=== PATIENT | female | born 1970 | race Caucasian/White ===

== ENCOUNTER 2023-01-28 12:30 | Outpatient (REF) | payer OTHER, SELFPAY ==
--- NOTE | ~2023-01-28 | MM_ITS ---
EXAMINATION: MM SCREENING DIGITAL BREAST TOMOSYNTHESIS, BILATERAL CLINICAL INFORMATION: Screening. Asymptomatic. The lifetime risk of breast cancer based on the Tyrer-Cuzick Model is 11%. COMPARISON: Mammography: 05/11/2011 TECHNIQUE: Digital breast tomosynthesis is performed in both the craniocaudal and mediolateral oblique views along with computer-aided detection (CAD). Synthesized 2D images are generated from the tomosynthesis. FINDINGS: There are scattered areas of fibroglandular density (ACR BI-RADS breast composition Category b). Parenchymal pattern is similar to prior exam and there is no significant mass or architectural abnormality. The bilateral axilla and skin contours are unremarkable. No abnormal calcifications right breast. Left breast has tightly grouped benign-appearing calcifications posterior left breast on MLO view 6 cm from nipple inferior to posterior nipple line. There is a central stack on tomography. Patient will be recalled to fully characterize. MM/MM tomosynthesis screening BI IMPRESSION: Left: -Tightly grouped probable benign calcifications posterior inferior breast on MLO view 6 cm from nipple. Right: -No mammographic evidence of malignancy. ASSESSMENT: BI-RADS 0: Incomplete - Need Additional Imaging Evaluation RECOMMENDATION: 1. Additional views left breast (magnification ML, magnification CC. 2. Radiology department staff will contact the patient for additional imaging. This patient's information was entered into a reminder system with a target due date for their next mammogram.
== END 2023-01-28 12:31 | disposition home or self-care (01) ==
LOC: HO.MAMMO 12:30
PROVIDERS: Visit Provider Nurse Practitioner Family
DX: Z12.31 Encounter for screening mammogram for malignant neoplasm of breast (principal)
CPT/HCPCS: 77063; 77067

== ENCOUNTER 2023-02-14 12:53 | Outpatient (REF) | payer OTHER, SELFPAY ==
--- NOTE | ~2023-02-14 | MM_ITS ---
EXAMINATION: MM DIAGNOSTIC DIGITAL MAMMOGRAPHY, LEFT CLINICAL INFORMATION: Recall from screening for tightly grouped calcifications left breast, new from prior mammography over 10 years earlier. COMPARISON: Mammography: 01/28/2023 (BI-RADS 0), 05/11/2011 TECHNIQUE: Digital mammography is performed in the following views: Magnification CC x2, magnification ML FINDINGS: There are scattered areas of fibroglandular density (ACR BI-RADS breast composition Category b). There are some faint punctate calcifications mid left breast just superior to posterior nipple line on the ML view. The CC views show a few barely perceptible vascular calcifications lateral and medial breast, otherwise no three-dimensional grouping. Results are discussed with the patient at time of visit. The calcifications may be vascular in etiology. Prior mammography is over 10 years ago. Chronicity is therefore uncertain. Management plan is for short interval six-month follow-up left mammography to include magnification views. MM/MM added views LT IMPRESSION: Probable benign calcifications left breast, possibly vascular. Long-term chronicity uncertain. ASSESSMENT: BI-RADS 3: Probably Benign RECOMMENDATION: Diagnostic left mammography in 6 months. This patient's information was entered into a reminder system with a target due date for their next mammogram.
== END 2023-02-14 12:54 | disposition home or self-care (01) ==
LOC: HO.MAMMO 12:53
PROVIDERS: PCP Nurse Practitioner Family; Visit Provider Nurse Practitioner Family
DX: R92.8 Other abnormal and inconclusive findings on diagnostic imaging of breast (principal)
CPT/HCPCS: 77065

== ENCOUNTER 2023-08-23 12:44 | Outpatient (REF) | payer OTHER, SELFPAY ==
--- NOTE | ~2023-08-23 | MM_ITS ---
EXAMINATION: MM DIAGNOSTIC DIGITAL BREAST TOMOSYNTHESIS, LEFT CLINICAL INFORMATION: Follow-up left breast calcifications approximate 9:00 axis, middle one third. First follow-up. COMPARISON: Mammography: 02/14/2023, 01/28/2023, 05/11/2011. TECHNIQUE: Digital breast tomosynthesis is performed in the following views: Left CC and ML 2-D spot magnification views, full-field left CC 3-D view, full-field 3-D left MLO views x2. FINDINGS: There are scattered areas of fibroglandular density (ACR BI-RADS breast composition Category b). There are stable and unchanged grouped calcifications in the approximate 9:00 axis of the left breast, middle one third, stable in number and morphology. There is been no aggressive change. There is a possibility these could represent vascular calcifications. No new calcifications, new masses, or areas of architectural distortion in the left breast. MM/MM tomosynthesis diagnostic LT IMPRESSION: There are no findings suspicious for malignancy in the left breast. There are no significant changes in the small grouped calcifications left breast 9:00 axis. Six-month interval follow-up recommended utilizing standard magnification views when the patient is due for bilateral screening in January 2024. ASSESSMENT: BI-RADS BI-RADS 3 - Probably benign finding(s) - 6 month follow-up suggested RECOMMENDATION: 6 Month F/U Results were provided to the patient at time of visit by the technologist. This patient's information was entered into a reminder system with a target due date for their next mammogram.
== END 2023-08-23 12:45 | disposition home or self-care (01) ==
LOC: HO.MAMMO 12:44
PROVIDERS: PCP Nurse Practitioner Family; Visit Provider Nurse Practitioner Family
DX: R92.1 Mammographic calcification found on diagnostic imaging of breast (principal)
CPT/HCPCS: 77061; 77065

== ENCOUNTER → 2023-08-23 13:00 | Outpatient (BNV) | payer OTHER, SELFPAY | PROVIDERS: PCP Nurse Practitioner Family; Visit Provider Radiology Diagnostic Radiology | DX: R92.1 Mammographic calcification found on diagnostic imaging of breast (principal) | CPT/HCPCS: 77061; 77065 ==

== ENCOUNTER 2024-03-03 13:19 | Outpatient (REF) | payer OTHER, SELFPAY ==
--- NOTE | ~2024-03-03 | MM_ITS ---
EXAMINATION: MM DIAGNOSTIC DIGITAL BREAST TOMOSYNTHESIS, BILATERAL CLINICAL INFORMATION: 6 month follow-up for left breast calcifications 3:00 axis left breast, middle one third. COMPARISON: Mammography: 08/23/2023, 02/14/2023, 01/28/2023 (BI-RADS 0), and dating back to 2010. TECHNIQUE: Digital breast tomosynthesis is performed in both the craniocaudal and mediolateral oblique views along with computer-aided detection (CAD). Synthesized 2D images are generated from the tomosynthesis. In addition, spot magnification 2-D CC and ML views were obtained of the left breast. FINDINGS: There are scattered areas of fibroglandular density (ACR BI-RADS breast composition Category b). Subtle grouped calcifications in the middle one third of the left breast at 9:00 are unchanged dating back to 01/28/2023. No aggressive changes are increased in number. Stable morphology. These remain probably benign. One-year follow-up recommended. Otherwise, bilateral hilar parenchymal pattern is stable with stable minor asymmetries in the upper outer bilateral breasts. No suspicious masses, new suspicious grouped calcifications, or areas of architectural distortion. No adenopathy or skin changes. MM/MM tomosynthesis diagnostic BI IMPRESSION: There are no findings suspicious for malignancy in either breast. There are stable probably benign calcifications in the 9:00 axis of the left breast. One-year follow-up diagnostic left mammogram recommended when the patient is due for bilateral screening, to include standard magnification views. ASSESSMENT: BI-RADS BI-RADS 3 - Probably benign finding(s) - 12 month follow-up suggested RECOMMENDATION: 12 month diagnostic follow up Results were provided to the patient at time of visit by the technologist. This patient's information was entered into a reminder system with a target due date for their next mammogram.
== END 2024-03-03 13:20 | disposition home or self-care (01) ==
LOC: HO.MAMMO 13:19
PROVIDERS: PCP Nurse Practitioner Family; Visit Provider Nurse Practitioner Family
DX: R92.1 Mammographic calcification found on diagnostic imaging of breast (principal)
CPT/HCPCS: 77062; 77066

== ENCOUNTER → 2024-03-03 13:30 | Outpatient (BNV) | payer OTHER, SELFPAY | PROVIDERS: PCP Nurse Practitioner Family; Visit Provider Radiology Diagnostic Radiology | DX: R92.1 Mammographic calcification found on diagnostic imaging of breast (principal) | CPT/HCPCS: 77062; 77066 ==

== ENCOUNTER 2025-03-08 11:59 | Outpatient (REF) | payer OTHER, SELFPAY ==
--- NOTE | ~2025-03-08 | MM_ITS ---
EXAMINATION: MM DIAGNOSTIC DIGITAL BREAST TOMOSYNTHESIS, BILATERAL CLINICAL INFORMATION: Year follow-up for grouped punctate calcifications in the central inner breast. COMPARISON: Mammography: Comparison is made with relevant prior exams. TECHNIQUE: Digital breast mammography with tomosynthesis is performed in both the craniocaudal and mediolateral oblique views along with computer-aided detection (CAD). FINDINGS: There are scattered areas of fibroglandular density (ACR BI-RADS breast composition Category b). Previously seen calcifications in the central inner left breast anterior to middle depth are not significantly changed from prior magnification views dating back for 2 years and therefore benign. There are no significant masses, abnormal calcifications, or other abnormalities. Results are provided to the patient at time of visit by the technologist. MM/MM tomosynthesis diagnostic BI IMPRESSION: Right: Negative. Left: Grouped punctate calcifications in the central inner left breast anterior to middle depth are not significant change from prior magnification views dating back for 2 years and therefore benign. ASSESSMENT: BI-RADS BI-RADS 2 - Benign Findings RECOMMENDATION: 1 year F/U This patient's information was entered into a reminder system with a target due date for their next mammogram. Electronically signed by: Taniya Serrano DO 03/08/2025 12:35 PM EDT
--- OUTSIDE RECORDS SUMMARY | 2025-03-08 13:04 | XMS_ITS | Clinical Summary ---
Author Organization [employer] Address [address] [place] [address] [address] [place] [address] Care Team Providers Care Budget Specialist Name Role Phone Melissa Ramirez Unavailable Unavailable Allergies Active Allergy Reactions Criticality Noted Date Comments Atorvastatin Low 11/30/2022 Other reaction(s): muscel aches, joint pain, swelling in her knees Terbinafine Low 11/30/2022 Other reaction(s): stomach upset Medications Humira Pen 40 MG/0.4ML Pen-injector Kit pen-injector 3 Active ferrous sulfate 325 (65 Fe) MG tablet 1 tablet in the morning. Active folic acid (Folvite) 1 MG tablet Take 1,000 mcg by mouth in the morning. 3 Active methotrexate 2.5 MG tablet 8 tablets per week 3 Active Multiple Vitamins-Minerals (Multi For Her) tablet Orally Active metoprolol succinate XL (Toprol-XL) 50 MG 24 hr tabletIndications:E ssential (primary) hypertension TAKE 1 AND 1/2 TABLETS BY MOUTH EVERY DAY ONCE A DAY 135 tablet 2 4 Active rosuvastatin (Crestor) 20 MG tabletIndications:M ixed hyperlipidemia Take 1 tablet (20 mg) by mouth in the morning. 90 tablet 3 4 Active losartan (Cozaar) 50 MG tabletIndications:E ssential hypertension Take 0.5 tablets (25 mg) by mouth Once per day. 45 tablet 3 4 03/30/20 25 Active Active Problems Problem Noted Date Diagnosed Date Abnormal mammogram 09/11/2023 Overview (03/30/2024): 08/23/23- L breast no findings suspicious for malignancy of left breast. No significant changes in small grouped calcifications left breast 9:00 axis. Birads 3. Bilat screening DUE February 2025. Essential hypertension 12/10/2022 Overview (10/04/2023): Well controlled with Lisinopril and Metoprolol Using BB for migraine/ FLORES prevention. Hyperlipidemia 12/10/2022 Overview (03/30/2024): 10-year ASCVD risk: 9.8% (11/2022) Last Lipid with mild elevation in Triglycerides from 06/17. Hx of myalgias with Lipitor Started Crestor (12/17) LDL in the 140 s- increasing from 10 to 20 of crestor. Assessment & Plan (12/10/2022 3:50 PM EDT): Mild diastolic elevation - due for labs. Tolerating meds well. 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 Plans to taper off Methotrexate due to some elevation in liver enzymes. Followed by Dr Celis ([facility]). 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 Polyp at cervical os 12/10/2022 Overview (01/25/2023): New finding of 1cm mass partially obscuring cervical os. ? If HPV growth related to immunosuppression. Recommend prompt eval with Cover Stitch Machine Operator for eval and bx, and excision (visit with [facility] 01/16/23) Biopsy: benign endocervical polyp 0.8 cm path (01/16/23) Immunizations Immunization Administration Dates Next Due Hep B, adult 07/04/2023,01/10/2023,12/10/2022 07/15/2023 INFLUENZA INJECTABLE QUADRIV ALANT CCIIV4 MDCK Multi-dose vial 06/08/2022,06/28/2020,05/25/2019 Influenza, IIV3, injectable 06/03/2018 Influenza, Split (incl. krishna fied surface antigen) 07/04/2018 Influenza, trivalent, adjuvanted 05/20/2023 Pfizer Covid-19 Vaccine 12+ 06/26/2021 Tdap 05/22/2018 Family History Medical History Relation Name Comments Gallbladder disease Father HTN Mother Polymyalgia rheumatica Mother Relation Name Status Comments Father Mother Alive Social History Tobacco Use Types Packs/Day Years Used Date Smoking Tobacco: Never Smokeless Tobacco: Never Tobacco Cessation:Counseling Given: Not Answered Alcohol Use Standard Drinks/Week Comments Yes 0 (1 standard drink = 0.6 oz pur e alcohol) occationally PHQ-2 Answer Date Recorded Patient Health Questionnaire-2 Score 0 12/10/2022 Housing Stability Answer Date Recorded What is your housing situation today? I have jose jeffrey 03/30/[address] you li ve. Do you have problems with any of the following? None of the above 03/30/2024 Food Insecurity Answer Date Recorded Within the past 12 months, y ou worried that your food would run out before you got money to buy more: Never True 03/30/2024 Within the past 12 months,th e food you bought just didn't last and you didn't have enough money to get more: Never True 12/2023 Transportation Answer Date Recorded In the past 12 months, has l ack of transportation kept you from medical appts, meetings, work or from getting things needed for daily living? No 03/30/2024 Utilities Answer Date Recorded In the past 12 months, has t he electric, gas, oil or water company threatened to shut off services in your home? No 03/30/2024 Depression Answer Date Recorded Patient Health Questionnaire-2 Score 0 03/30/2024 Internet Access Answer Date Recorded Internet Access Q1 Yes 04/26/2024 Internet Access Q2 Not on file 04/26/2024 Education Answer Date Recorded What is the highest level of school you have completed or the highest degree you have received? Associate degree: academic program 12/10/2022 Comments Unknown Sex and Gender Information Value Date Recorded Sex Assigned at Female 12/06/2022 11:00 AM EDT Legal Sex Female 8:38 PM EDT Gender Identity Female 12/06/2022 11:00 AM EDT Sexual Orientation Straight 12/06/2022 11 :00 AM EDT Occupation Industry Job Start Date Job End Date Nurse Not on file Not on file Not on file Last Filed Vital Signs Vital Sign Reading Time Taken Comments Blood Pressure 140/85 03/30/2024 9:41 AM EDT Pulse 85 03/30/2024 9:04 AM EDT Temperature 36.5 C (97.7 F) 03/30/2024 9:04 AM EDT Respiratory Rate 16 03/30/2024 9:04 AM EDT Oxygen Saturation 98% 06/05/2023 11:42 AM EDT Inhaled Oxygen Concentration - - Weight 85.7 kg (189 lb) 03/30/2024 9:04 AM EDT Height 159.4 cm (5' 2.75 ) 03/30/2024 9:04 AM ED T Body Mass Index 33.75 03/30/2024 9:04 AM EDT Plan of Treatment Health Maintenance Due Date Last Done Comments CT Colonography 1970 Colonoscopy 1970 Colorectal Cancer Screening 1970 FIT DNA/Cologuard 1970 FIT 1970 FOBT 1970 HIV Screening 1970 Sigmoidoscopy 1970 Disability Screening 1970 Alcohol/Substance Use Screening 1982 Pneumococcal Vaccine: 50+ Years (1 of 2 - PCV) 1989 Zoster Vaccines (1 of 2) 1989 COVID-19 Vaccine ( season) 2024 08/30/2023, 09/04/2022, 06/26/2021, Additional history exists Tobacco Screening 06/05/2024 06/05/2023 Mammogram 09/03/2024 03/03/2024, 07/27, 01/28/2023 Depression Screening 03/30/2025 03/30/2024, 03/30/20 24 SDOH Screening 03/30/2025 03/30/2024 Influenza Vaccine (#1) 2025 , 06/08/2022, 06/28/2020, Additional history exists Pap Smear 12/10/2025 12/10/2022, 05/30/2018 Cervical Cancer Screening 12/11/2027 HPV/Cotest 12/11/2027 12/10/2022, 05/30/2018 DTaP/Tdap/Td Vaccines (2 - Td or Tdap) 05/22/2028 05/22/2018 Lipid Panel 03/24/2029 03/24/2024, 05/26, 12/12/2022, Additional history exists RSV Patients and Patients Aged 60 years or older (1 - 1-dose 75+ series) 2045 Hepatitis C Screening Completed 12/12/2022 Hepatitis B Vaccines Completed 07/04/2023, 01/10/2023, 12/10/2022 HIB Vaccines Aged Out No longer eligi ble based on patient's age to complete this topic HPV Vaccines Aged Out No longer eligi ble based on patient's age to complete this topic Hepatitis A Vaccines Aged Out No long er eligible based on patient's age to complete this topic IPV Vaccines Aged Out No longer eligi ble based on patient's age to complete this topic Meningococcal B Vaccine Aged Out No l onger eligible based on patient's age to complete this topic Meningococcal Vaccine Aged Out No myrtle karie eligible based on patient's age to complete this topic RSV under 20 months Aged Out No longe r eligible based on patient's age to complete this topic Rotavirus Vaccines Aged Out No longer eligible based on patient's age to complete this topic Procedures Procedure Name Priority Date/Time Associated Diagnosis Comments LIPID PANEL, STANDARD Routine 03/24/2024 8:49 AM EDT BI MAMMOGRAM DIAGNOSTIC BILATERAL Routine 03/03/2024 Calcification of left breast HEPATITIS C VIRUS, RIBA Routine 12/12/2022 9:15 AM EDT PAP, LB WITH CT/GC AND HPV Routine 12/10/2022 3:30 PM EDT Mixed hyperlipidemia from Last 3 Months or Most Recently Relevant to Health Maintenance Results * (ABNORMAL) Lipid Panel, Standard (03/24/2024 8:49 AM EDT) Cholesterol, Total 234(H) 100 - 199 mg/dL [facility] 1 Triglycerides 204(H) 0 - 149 mg/dL [facility] 1 HDL Cholesterol 48 >39 mg/dL [facility] 1 VLDL Cholesterol Shashank 37 5 - 40 mg/dL [facility] 1 LDL Chol Calc (NIH) 149(H) 0 - 99 mg/dL [facility] 1 03/24/2024 8:49 AM EDT 03/24/2024 Narrative [facility] 1 - 03/25/2024 8:08 AM EDT Performed at: 01 - [facility] [address] [id number] Tattooer: Yvonne Huggins MD, Phone: [phone] [facility] LAB BLOOD ORDERABLES F inal Result [facility] * BI Mammogram Diagnostic Bilateral (03/03/2024) Anatomical Region Laterality Modality Breast Bilateral [facility]ammography [facility] PROCEDURES Ileana l Result * Hepatitis C virus, RIBA (12/12/2022 9:15 AM EDT) Hepatitis C Virus Ab, Serum NEGATIVE (NEG) [facility] Comment: Reference range: Negative This test was performed on the [employer] immunoassay system. Testing performed or reported by [facility], a Service of [facility], [address] [place] [id number] Marbin Quan MD, Retail Planner [facility]# [id number] 12/12/2022 9:15 AM EDT 12/12/2022 9:19 AM EDT [facility] BLOOD ORDERABLES F inal Result Performing Organization Address City/[facility]/ZIP Co de Phone Number [facility] [address] [place], [place] [id number] * PAP, LB with CT/GC and HPV (12/10/2022 3:30 PM EDT) PAP, LB WITH CT/GC AND HPV Patient Name: HUBER ANTOINE [facility] Comment: Patient : 1970 (Age: 52) Lab Collection Date: 12/10/2022 Accession Date: 12/11/2022 Sign Out Date: 12/20/2022 Tissue Source: 1: [employer]GMENT LEADER PAP TEST, CERVICAL: Final Diagnosis: NEGATIVE FOR INTRAEPITHELIAL LESION OR MALIGNANCY. Reactive cellular changes associated with inflammation. Satisfactory for evaluation. Endocervical/transformation zone present. Procedures/Addenda: Human Papilloma Virus, High-Risk (Any Dx) Status: Signed Out Interpretation: Negative Methodology: [employer] Aptima HPV mRNA assay (Nucleic Acid Amplification Test, NAAT). Clinical History: Date of Last Menstrual Period: not available Menstrual History: not available Contraceptive History: not available Ancillary Testing: HPV (any dx) Chlamydia/GC Case imaged by the [employer] Imaging System with manual rescreening or review. Performed at [facility] department of Cytology, [facility] Clinical History (other): Z12.4 NEW FINDING OF 1CM WARTY CERVICAL GROWTH PARTIALLY OBSCURING OS @ 3 O'CLOCK , POSITIVE FRIABLE CERVIX ROUTINE SCREEN Primary Pathologist: Romy Pollock M.D. Phone #: [phone], On-Call Pathologist: [id number] Testing performed or reported by [facility], a Service of [facility], [address] [place] [address] Jordon Rordiguez MD, Retail Planner CLIA# [id number] 12/10/2022 3:30 PM EDT 12/11/2022 5:45 AM EDT Brigitte Hinkle [facility] CYTOLOGY ORDERABLE S Final Result [address] [id number] from Last 3 Months or Most Recently Relevant to Health Maintenance Insurance , [address] [place] [address] Care Teams Budget Specialist Relationship Specialty Start Date End Date Melissa Ramierz Community Health Worker 12/05/22
== END 2025-03-08 12:00 | disposition home or self-care (01) ==
LOC: HO.MAMMO 11:59
PROVIDERS: PCP Nurse Practitioner Family; Visit Provider Nurse Practitioner Family
DX: R92.8 Other abnormal and inconclusive findings on diagnostic imaging of breast (principal)
CPT/HCPCS: 77062; 77066

== ENCOUNTER → 2025-03-08 12:00 | Outpatient (BNV) | payer OTHER, SELFPAY | PROVIDERS: PCP Nurse Practitioner Family; Visit Provider Internal Medicine | DX: R92.1 Mammographic calcification found on diagnostic imaging of breast (principal) | CPT/HCPCS: 77062; 77066 ==